=== PATIENT | male | born 1955 ===

== ENCOUNTER 2016-05-16 08:41 | Outpatient (CLI) | payer BC ==
--- NOTE | 2016-05-16 14:59 | Fluoroscopy Report ---
MODIFIED BARIUM SWALLOW INDICATION: Pain in throat. COMPARISON: None similar at this institution. FINDINGS: Fluoroscopy provided by radiologist for speech therapist to assess the swallowing mechanism. Food items of various consistencies given. Cervical spine fusion hardware with intervertebral disc maintainers noted. Few surgical clips in the neck as well. Few radiopaque dental fillings. IMPRESSION: Successful modified barium swallow. Please refer to detailed report from speech pathologist. Thank you for the opportunity to participate in this patient's care.
== END 2016-05-16 08:42 | disposition home or self-care (01) ==
LOC: PT 08:41
PROVIDERS: ATTEND Otolaryngology
DX: R07.0 Pain in throat (principal); M43.22 Fusion of spine, cervical region
CPT/HCPCS: 74230